=== PATIENT | female | born 1940 | race Caucasian/White ===

== ENCOUNTER 2015-12-10 14:51 | Day surgery (SDC) | payer OTHER ==
[~2015-12-10] VITALS: Ht 157.5 cm; Wt 56.0 kg
[~2015-12-10 14:51] MED LIST: AMLO5TAB4 PO; APR50 PO; ASC250 PO; ASPI-664 PO; ATOR40TA68 PO; CALC1CAP9 PO; ESOM40CA PO; FER325 PO; FOLI-49 PO; ISOS20TA19 PO
[2015-12-10 15:43] VITALS: BP 135/56; PULSE 95; RESP 22
[2015-12-10] MEDS ORDERED: HYDR100T7 PO (15:44)
[2015-12-10] MEDS ORDERED: ASPI81TA3 PO (15:44)
[2015-12-10] MEDS ORDERED: IPRA15SP2 NEB (15:44)
[2015-12-10] MEDS ORDERED: HYDR-3672 PO (15:44)
[2015-12-10] MEDS ORDERED: DIPH25CA6 PO (15:44)
[2015-12-10] MEDS ORDERED: ATOR40TA68 PO (15:44)
[2015-12-10] MEDS ORDERED: FAMO40TA52 PO (15:44)
[2015-12-10] MEDS ORDERED: ALBU2.5V3 NEB (15:44)
[2015-12-10] MEDS ORDERED: ACET500C5 PO (15:44)
[2015-12-10] MEDS ORDERED: ISOS40TA10 PO (15:50)
[2015-12-10] MEDS ORDERED: LOPE1LIQ PO (15:50)
[2015-12-10] MEDS ORDERED: NIFE30TA36 PO (15:50)
[2015-12-10] MEDS ORDERED: FLUT12HF IH (15:50)
[2015-12-10] MEDS ORDERED: MORP30PC IV (15:50)
[2015-12-10 15:56] VITALS: Ht 157.5 cm; Wt 56.0 kg
[2015-12-10] MEDS ORDERED: HYDROCORTISONE 100 MG INJ ONE (17:53)
[2015-12-10] MEDS ORDERED: HYDROCORTISONE 100 MG INJ IV ONE (18:00)
[2015-12-10] MEDS ORDERED: DIPHENHYDRAMINE 50 MG INJ IV ONE (18:00)
[2015-12-10] MEDS ORDERED: IODIXANOL LOCM 100 ML BTL ONE ×2 (18:56→19:08)
[2015-12-10] MEDS ORDERED: LIDOCAINE 1% (MDV) 20 ML INJ ONE (18:56)
[2015-12-10] MEDS ORDERED: DIPHENHYDRAMINE 50 MG INJ ONE (19:09)
[2015-12-10] MEDS ORDERED: HEPARIN 1000 UNITS/ML 10 ML INJ ONE (19:09)
[2015-12-10] MEDS ORDERED: NITROGLYCERIN (IC) 100 MCG/ML INJ ONE (19:09)
[2015-12-10] MEDS ORDERED: ADENOSINE 90 MG in SOD CHLORIDE 0.9% 90 ML IV SCH (20:30)
[2015-12-10] MEDS ORDERED: morphine 2 MG INJ IV PRN (21:30)
[2015-12-10] MEDS ORDERED: ACETAMINOPHEN 325 MG TAB PO PRN (21:30)
[2015-12-10 22:28] VITALS: BP 147/64; PULSE 91; RESP 22
[2015-12-10 23:16] VITALS: BP 132/63; PULSE 91; RESP 21
[2015-12-10 23:36] VITALS: BP 142/74; PULSE 76; RESP 28
[2015-12-11 00:41] VITALS: BP 145/68; PULSE 96; RESP 25
--- NOTE | 2015-12-11 01:16 | OPR ---
DATE OF OPERATION: 12/10/2015 CARDIAC CATHETERIZATION REPORT PREOPERATIVE DIAGNOSES: 1. Left heart catheterization including selective right and left coronary angiography. 2. Nonselective injection of the MARTIN. 3. Aortogram. 4. Fractional flow reserve of the ostial left main artery. 5. Non-ST segment elevation myocardial infarction. 6. Decompensated congestive heart failure. POSTOPERATIVE DIAGNOSES: 1. Intermediate lesion of the ostial left main artery, status post fractional flow reserve which was negative (0.82). 2. Nonobstructive coronary artery disease of the RCA with patent mid-stent. 3. Proximal occlusion of the LAD artery which is filled via patent MARTIN. BRIEF HISTORY: This is a 75-year-old female with a history of coronary artery disease, status post 2-vessel bypass 2 or 3 years ago, history of PCI prior to that as well as chronic kidney disease, congestive heart failure, hypertension and hyperlipidemia. DESCRIPTION OF PROCEDURE: The patient presented with shortness of breath and was found to be in decompensated heart failure. She also was found to have non- ST segment elevation myocardial infarction. During her hospitalization, she was found to have acute renal failure, eventually requiring placement of a dialysis catheter and subsequent hemodialysis. Due to her significant non-ST segment elevation myocardial infarction and recurrent congestive heart failure, it was felt necessary to evaluate her coronary artery bypass graft anatomy more definitively via cardiac catheterization. DESCRIPTION OF PROCEDURE: At this time the patient was informed of the indications, risks, benefits and alternatives to the procedure, and she agreed to proceed. She was brought to the cardiac catheterization lab in a fasting state. The patient was prepped and draped in usual sterile fashion. She was premedicated with a total of 50 mg of Benadryl IV x1 as well as previous administration of solu-cortef 200 mg x1 and prednisone p.o. in preparation for cardiac catheterization due to her known CONTRAST ALLERGY. Subsequently, 20 mL of 1% lidocaine was infused in the right groin. Using a micropuncture needle, access was obtained in the right femoral artery. Due to significant tortuosity and calcified plaques there was initially difficulty going up the aorta and so a Magic torque wire was used to eventually traverse the aorta. Next, a 6-Moroccan JL3.5 catheter was used to engage the left main coronary artery and angiography was performed. Subsequently, over a long exchange wire, a 6-Moroccan JR4 catheter was advanced and selective right coronary angiography was performed. At this time, the vein graft could not be found with the JR4 catheter. The JR4 catheter was then used to selectively engage the left subclavian artery and a nonselective MARTIN angiography was done. Subsequently, the catheter was exchanged for a 6-Moroccan pigtail catheter which was advanced to the ascending aorta and pullback angiography was performed to evaluate for the remaining vein grafts. At this time, the decision was made to further evaluate the ostial left main lesion with FFR. Please see below for further details. CARDIAC CATHETERIZATION FINDINGS: CORONARY ANATOMY: 1. The left main is a medium caliber vessel with an ostial 40% lesion. 2. The proximal LAD is occluded. The LAD distally fills via the MARTIN. 3. The circumflex artery is a large caliber vessel with mild luminal irregularities. 4. The obtuse marginal is a large vessel which has mid-40% disease. 5. The RCA is a large caliber vessel with proximal 30 to 40% plaque followed by a mid patent stent. 6. The PDA and PL branches of the RCA are free of significant disease. 7. MARTIN to LAD is patent. 8. SVG to presumably obtuse marginal branch was not found via selective angiography or by an aortogram. HEMODYNAMICS: 1. LV pullback pressure was 159/12 with LVEDP of 20. 2. The aortic pullback pressure was 155/49. FRACTIONAL FLOW RESERVE FINDINGS: The ostial left main lesion was thought to be intermediate in nature. The decision was made to further evaluate this via FFR. At this time, 4500 units of heparin were given intravenously. The 6-Moroccan JL3.5 catheter with side holes was advanced to the ascending aorta. The FFR wire was zeroed in normal fashion and then advanced into the ascending aorta. Prior to engagement of the catheter, the pressures were equalized in normal fashion. Next, the left main artery was engaged and the FFR wire was advanced past the left main lesion into the mid circumflex artery. The guide catheter was then disengaged so as not to cause any dampening of pressures. The baseline FFR was measured at 0.86. Next, 180 mcg/kg/minute adenosine was infused intravenously. The FFR measurement was 0.82 at its lowest. At this time, the guide catheter and FFR wire were withdrawn and all equipment was removed. The right femoral sheath will be removed once the ACT is subtherapeutic. FLUOROSCOPY TIME: 18 minutes. CONTRAST USED: 126 mL Visipaque. MEDICATIONS ADMINISTERED: Benadryl 50 mg IV x1, heparin 4500 units. ESTIMATED BLOOD LOSS: Minimal. COMPLICATIONS: None. ASSESSMENT: 1. Intermediate ostial left main disease with negative FFR (0.82). 2. Patent MARTIN that supplies a proximally occluded LAD. 3. Nonobstructive disease of the RCA. 4. Congestive heart failure. RECOMMENDATION: The patient will be monitored in the recovery room for post- cardiac catheterization care post sheath removal. The patient will then be transferred back to [facility] for further medical management. Dictated By: JON GUZMAN/SUZE Conf#: [id number] DID#: [id number] MTDD
== END 2016-03-25 15:28 | disposition home or self-care (01) ==
LOC: CCL 14:51 → ICU 03-25 14:21 → CCL 03-25 15:28
PROVIDERS: ATTEND Internal Medicine Interventional Cardiology
DX: I21.4 Non-ST elevation (NSTEMI) myocardial infarction (principal); I25.10 Atherosclerotic heart disease of native coronary artery without angina pectoris; I50.9 Heart failure, unspecified
CPT/HCPCS: 93459; 93571; C1769; C1887; C1894; J0153; J1200; J1644; J1720; Q9967